=== PATIENT | female | born 1975 | race Caucasian/White ===

== ENCOUNTER 2019-09-01 11:40 | Inpatient (IN) | payer BC ==
[~2019-09-01] VITALS: Ht 167.6 cm; Wt 69.0 kg
[2019-09-01 13:26] LABS: Basophils # (auto) 0.1 uL; Basophils % (auto) 1.1 % (0.0-2.0); Eosinophils # (auto) 0.1 uL; Eosinophils % (auto) 1.4 % (0.0-7.0); Hematocrit 49.2 % (36.0-46.0); Lymphocytes # (auto) 1.8 uL; Lymphocytes % (auto) 19.5 % (10.0-50.0); Mean Corpuscular Hgb Conc. 34.6 g/dL (32.0-36.0); Mean Corpuscular Volume 98.3 fL (80.0-100.0); Monocytes # (auto) 0.7 uL; Monocytes % (auto) 7.2 % (0.0-12.0); Neutrophils # (auto) 6.5 uL; Neutrophils % (auto) 70.8 % (37.0-80.0); Nucleated Red Blood Cells % 0.2 %; Platelet Count (auto) 277 10^3/uL (140-450); Red Blood Cells 5.01 10^6/uL (4.0-5.20); Red Cell Distribution Width 12.9 % (11.8-14.3); White Blood Cell 9.2 10^3/uL (4.4-10.8)
[2019-09-01 13:41] LABS: Alanine Aminotransferase 18 U/L (13-56); Albumin 3.3 g/dL (3.4-5.0); Anion Gap 6 (5-15); Aspartate Aminotransferase 18 U/L (15-37); BUN/Creatinine Ratio 9.8; Blood Urea Nitrogen 8 mg/dL (7-18); Calcium 8.6 mg/dL (8.5-10.1); Carbon Dioxide 24 mmol/L (21-32); Chloride 110 mmol/L (98-107); GFR African American 97 mL/min; GFR Non-African American 80 mL/min; Glucose 94 mg/dL (74-106); Sodium 140 mmol/L (136-145)
[2019-09-01] MEDS ORDERED: methylPREDNISolone SOD SUCC 125 MG/2 ML VL IV ONE (13:45)
[2019-09-01 13:46] LABS: Alkaline Phosphatase 105 U/L (45-117); Bilirubin, Total 0.9 mg/dL (0.2-1.0); Total Protein 7.1 g/dL (6.4-8.2)
[2019-09-01] MEDS ORDERED: ALBUTEROL SULF 2.5 MG/0.5ML(0.5%) NEB SOLN NEB PRN (16:15)
[2019-09-01] MEDS ORDERED: ONDANSETRON HCL 4 MG/2 ML VIAL IV PRN (16:15)
[2019-09-01] MEDS ORDERED: NITROGLYCERIN 0.4 MG SL TAB SL PRN (16:15)
[2019-09-01] MEDS ORDERED: ACETAMINOPHEN 500 MG TAB PO PRN (16:15)
[2019-09-01] MEDS ORDERED: IPRATROPIUM BROM 0.5 MG/2.5ML INH SOL NEB PRN (16:15)
[2019-09-01] MEDS ORDERED: MORPHINE SULF INJ 2 MG/ML SYRINGE 1ML IV PRN (16:15)
[2019-09-01] MEDS ORDERED: IOHEXOL 300 MG/ML 100ML BOTTLE IJ ONE (16:26)
[2019-09-01] MEDS ORDERED: PANT1INJ3 PO (18:06)
[2019-09-01] MEDS ORDERED: METR250T PO (18:06)
[2019-09-01] MEDS ORDERED: DOXY100C2 PO (18:06)
[2019-09-01 18:07] LABS: INR 0.94 (0.9-1.15); Partial Thromboplastin Time 30.7 sec (23.64-32.05)
--- NOTE | 2019-09-01 19:13 | NUR ---
Opening Shift Note Assumed care of patient, awake and alert x4. No S/S of distress/SOB or pain. Call light is within reach, side rails up x2, bed is in lowest position. Instructed on POC and to call for assist PRN. All questions and concerns answered, will continue to monitor for changes Q1hr and PRN.
[2019-09-01] MEDS: ALBUTEROL SULF 2.5 MG/0.5ML(0.5%) NEB SOLN NEB SCH (19:36)
[2019-09-01] MEDS: IPRATROPIUM BROM 0.5 MG/2.5ML INH SOL NEB SCH (19:36)
--- NOTE | 2019-09-01 19:51 | NUR ---
EKG done technician plant and maintenance called, patient was having frequent PVCs. EKG completed, no complaints of pain. EKG read sinus tachycardia with PVCs similar to previous EKG taken. It is in the hard chart. Will continue to monitor.
[2019-09-01] MEDS: metroNIDAZOLE 500 MG TAB PO SCH (21:33)
[2019-09-01] MEDS: DOXYCYCLINE 100 MG TAB/CAP PO SCH (21:33)
[2019-09-01 22:00] VITALS: BP 115/65
[2019-09-01 23:09] VITALS: BP 115/65
[2019-09-02 05:00] VITALS: BP 122/76
[2019-09-02] MEDS: metroNIDAZOLE 500 MG TAB PO SCH ×2 (06:08→14:00)
[2019-09-02] MEDS: ALBUTEROL SULF 2.5 MG/0.5ML(0.5%) NEB SOLN NEB SCH ×3 (06:27→18:19)
[2019-09-02] MEDS: IPRATROPIUM BROM 0.5 MG/2.5ML INH SOL NEB SCH ×3 (06:27→18:18)
--- NOTE | 2019-09-02 07:42 | NUR ---
Opening patient awake, in bed, bed in lowest position, call light within reach. no distress noted at this time. Will f/u with morning assessment. patient is awaiting dr al, pulmonology consult; per the cxr and chest ct results. will continue to monitor this patient
[2019-09-02 08:49] VITALS: BP 136/86
[2019-09-02] MEDS: DOXYCYCLINE 100 MG TAB/CAP PO SCH (09:36)
[2019-09-02] MEDS ORDERED: PANTOPRAZOLE 40 MG TAB PO SCH (10:00)
[2019-09-02 12:08] VITALS: BP 141/84
--- NOTE | 2019-09-02 14:33 | NUR ---
s/p thoracentesis DR Figueroa completed the procedure at bedside, patient tolerated well. vital signs 154/94 blood pressure heart rate 103 oxygen saturations 92% patient is able to speak without excessive shortness of breath, states "i feel better" will contine to monitor this patient specimens have be sent to lab for testing
[2019-09-02 16:49] VITALS: BP 136/75
--- NOTE | 2019-09-02 17:07 | NUR ---
pharmacist karla rounding and discusses a treatment plan for patient for Hpylori diagnosis discussed with dr salas, and he agreed plan of treatment is start amoxicillin 1 g BID with PPI protonix BID for 7 days, then follow with clarithromycin 500 mg BID and metronidazole 500 mg BID and PPI BID for 7 days as well. Placed all orders, and coordinating dates. Will endorse to noc nurse to further endorse.
--- NOTE | 2019-09-02 17:59 | NUR ---
PAGING MATURITY CHECKER RECORDER GRAVITY PROSPECTING PER THE PATIENTS SHORTNESS OF BREATH, SATURATIONS FROM 92-94% O 2 ON ROOM AIR, BLOOD PRESSURE 131/88 SPOKE WITH JERMAINE ON RECORDER GRAVITY PROSPECTING'S EXCHANGE
[2019-09-02] MEDS: MORPHINE SULF INJ 2 MG/ML SYRINGE 1ML IV PRN (18:00)
[2019-09-02] MEDS ORDERED: AMOXICILLIN TRIHYDRATE 250 MG CAP PO SCH (18:00)
[2019-09-02] MEDS: PANTOPRAZOLE 40 MG TAB PO SCH (18:00)
--- NOTE | 2019-09-02 18:41 | NUR ---
COMMUNICATION ORDERS PER MD ASTUDILLO IF PATIENT IN DISTRESS ORDER STAT CXR AND ABG
[2019-09-02] MEDS ORDERED: FUROSEMIDE 20 MG/2 ML VIAL IV ONE (18:45)
--- NOTE | 2019-09-02 18:46 | NUR ---
NEW ORDERS FROM MD ASTUDILLO LASIX 20 MG 1 TIME DOSAGE, HE REVIEWED CHEST XRAY AND SAYS TO CANCEL ABG
--- NOTE | 2019-09-02 18:59 | NUR ---
PT PLACED ON 3L NC DUE TO PT INCREASED WOB. POX 98% RR 24
--- NOTE | 2019-09-02 19:20 | NUR ---
Opening Shift Note Pt is resting in bed with resp rate even and unlabored. Pt denies any SOB at this time. POC discussed with pt and pt verbalizes understanding. Bed is low, wheels are locked, and call light is with in reach.
--- NOTE | 2019-09-02 20:52 | NUR ---
PT REQUESTING O2 MASK DUE TO NASAL CONGESTION. PT PLACED ON 6L SIMPLE MASK POX 99%
[2019-09-02 21:14] VITALS: BP 118/85
--- NOTE | 2019-09-02 21:30 | NUR ---
PER PHARMACY CLARITHROMYCIN AND FLAGYL TO BE STARTED ON 09/09/19 PER H.PYLORI PROTOCOL.
[2019-09-03 04:33] VITALS: BP 125/84
[2019-09-03] MEDS: ALBUTEROL SULF 2.5 MG/0.5ML(0.5%) NEB SOLN NEB SCH ×4 (05:51→18:54)
[2019-09-03] MEDS: IPRATROPIUM BROM 0.5 MG/2.5ML INH SOL NEB SCH ×4 (05:51→18:54)
[2019-09-03] MEDS: PANTOPRAZOLE 40 MG TAB PO SCH ×2 (06:01→18:04)
[2019-09-03 07:24] LABS: Basophils # (auto) 0.1 uL; Basophils % (auto) 0.9 % (0.0-2.0); Eosinophils # (auto) 0.1 uL; Eosinophils % (auto) 1.3 % (0.0-7.0); Hemoglobin 16.1 g/dL (12.2-16.2); Lymphocytes # (auto) 1.7 uL; Lymphocytes % (auto) 18.8 % (10.0-50.0); Mean Corpuscular Hemoglobin 33.8 pg (28.0-32.0); Mean Corpuscular Hgb Conc. 34.2 g/dL (32.0-36.0); Mean Corpuscular Volume 98.7 fL (80.0-100.0); Monocytes # (auto) 0.7 uL; Monocytes % (auto) 8.3 % (0.0-12.0); Neutrophils # (auto) 6.3 uL; Neutrophils % (auto) 70.7 % (37.0-80.0); Nucleated Red Blood Cells % 0.1 %; Platelet Count (auto) 247 10^3/uL (140-450); Red Blood Cells 4.77 10^6/uL (4.0-5.20); Red Cell Distribution Width 12.7 % (11.8-14.3)
[2019-09-03 07:30] VITALS: BP 129/79
[2019-09-03 07:41] LABS: Anion Gap 6 (5-15); BUN/Creatinine Ratio 10.6; Blood Urea Nitrogen 10 mg/dL (7-18); Calcium 8.6 mg/dL (8.5-10.1); Carbon Dioxide 28 mmol/L (21-32); Chloride 109 mmol/L (98-107); GFR African American 83 mL/min; GFR Non-African American 68 mL/min; Glucose 117 mg/dL (74-106); Magnesium 2.1 mg/dL (1.6-2.6); Potassium 4.2 mmol/L (3.5-5.1); Sodium 143 mmol/L (136-145)
--- NOTE | 2019-09-03 07:50 | NUR ---
Opening Shift Note Assumed care of patient, awake and alert. No S/S of distress/SOB or pain. Bed in lowest position, breaks locked side rails up x2, call light with in reach. Instructed on POC and to call for assist PRN, will continue to monitor for changes Q1hr and PRN.
[2019-09-03 09:00] VITALS: BP 129/79
--- NOTE | 2019-09-03 09:10 | NUR ---
Doctor Luciano rounding.
[2019-09-03] MEDS: AMOXICILLIN TRIHYDRATE 250 MG CAP PO SCH ×2 (09:26→22:15)
--- NOTE | 2019-09-03 09:35 | NUR ---
Doctor Gil dotson. Addendum: 09/03/19 at 1825 by WARREN SANTIAGO RN RN This note was intended for 0950.
[2019-09-03] MEDS: MORPHINE SULF INJ 2 MG/ML SYRINGE 1ML IV PRN ×2 (10:05→16:18)
[2019-09-03 13:00] VITALS: BP 117/77
--- NOTE | 2019-09-03 14:00 | NUR ---
Educated patient on the use and importance of IS. Patient was able to go to 500ml x3.
--- NOTE | 2019-09-03 21:00 | NUR ---
RECEIVE IN BED IS WATCHING TV NO SOB OR DISTRESS
[2019-09-03 22:00] VITALS: BP 119/82
[2019-09-03] MEDS: HYDROcodone-ACET 5/325MG TAB PO PRN (22:20)
[2019-09-04] VITALS (7 sets, daily range): BP systolic 116–133; BP diastolic 61–91
[2019-09-04] MEDS: PANTOPRAZOLE 40 MG TAB PO SCH ×2 (06:00→17:51)
[2019-09-04] MEDS: IPRATROPIUM BROM 0.5 MG/2.5ML INH SOL NEB SCH ×3 (06:17→18:43)
[2019-09-04] MEDS: ALBUTEROL SULF 2.5 MG/0.5ML(0.5%) NEB SOLN NEB SCH ×3 (06:17→18:43)
--- NOTE | 2019-09-04 07:40 | NUR ---
Opening Shift Note Assumed care of patient, awake and alert. No S/S of distress/SOB or pain. Bed in lowest position, breaks locked, side rails up x2, call light with in reach. Instructed on POC and to call for assist PRN, will continue to monitor for changes Q1hr and PRN.
[2019-09-04] MEDS: AMOXICILLIN TRIHYDRATE 250 MG CAP PO SCH ×2 (09:24→22:14)
[2019-09-04] MEDS: MORPHINE SULF INJ 2 MG/ML SYRINGE 1ML IV PRN ×4 (09:24→22:15)
--- NOTE | 2019-09-04 11:47 | NUR ---
Nutrition Assessment Notes please see attached link for complete assessment Est. Needs BW [id number] kcal (23-25 kcal/kgBW), 69-82 gms pro (1.0-1.2 gms/kgBW). Will continue to monitor pertinent labs and reassess nutrient need prn Addendum: 09/04/19 at [address] Amended: Links added.
--- NOTE | 2019-09-04 21:00 | NUR ---
RECEIVE IN BED DENIES PAIN AT THIS TIME ENCOURAGE TO USE INCENTIVE SPIROMETER
--- NOTE | 2019-09-04 21:00 | NUR ---
RECEIVE IN BED USES MOTORIZE CHAIR TO GO DOWNSTAIRS TO SMOKE IS AWARE HE SHOULD INFORM NURSE BEFORE LEAVING REMAINS ON TELEMETRY WITH FREQUENT PVC Addendum: 09/04/19 at 0060 by ONEIL ROBBINS RN RN NOTE INTENDED FOR ANOTHER PATIENT
[2019-09-05 04:45] VITALS: BP 132/69
[2019-09-05] MEDS: PANTOPRAZOLE 40 MG TAB PO SCH ×2 (06:05→17:58)
[2019-09-05] MEDS: MORPHINE SULF INJ 2 MG/ML SYRINGE 1ML IV PRN (06:06)
[2019-09-05] MEDS: IPRATROPIUM BROM 0.5 MG/2.5ML INH SOL NEB SCH ×3 (06:25→19:07)
[2019-09-05] MEDS: ALBUTEROL SULF 2.5 MG/0.5ML(0.5%) NEB SOLN NEB SCH ×3 (06:25→19:07)
--- NOTE | 2019-09-05 08:00 | NUR ---
Opening Shift Note Assumed care of patient, awake, alert and oriented X4. No S/S of distress/SOB, complains of pain to right upper abdomen, 3/10, Alves Reyes scale, verbalized tolerable. O2 @ 2 LPM via nasal cannula with sats @ 95%. IV to left hand, 22 gauge, patent and saline locked. Instructed on POC and to call for assist PRN, verbalized understanding. Bed locked, in lowest position, call light within reach, will continue to monitor for changes Q1hr and PRN.
[2019-09-05 09:00] VITALS: BP 111/71
--- NOTE | 2019-09-05 09:30 | NUR ---
ROUNDS Dr Maikel Luciano at bedside for rounds, new orders received and followed through. Patient updated on plan of care, verbalized understanding.
[2019-09-05] MEDS: AMOXICILLIN TRIHYDRATE 250 MG CAP PO SCH ×2 (10:17→21:41)
--- NOTE | 2019-09-05 10:25 | NUR ---
Respiratory note: PT SPO2 AT REST MAINTAINS ABOVE 94%. TRIED TO AMBULATE PT AND SPO2 REMAINED 92% AND ABOVE. WILL INFORM KEAOTN GARCIA.
[2019-09-05] MEDS: HYDROcodone-ACET 5/325MG TAB PO PRN ×2 (11:58→18:42)
[2019-09-05 16:46] VITALS: BP 130/88
--- NOTE | 2019-09-05 16:50 | NUR ---
RESPIRATORY Dr Luis Miguel Rios at bedside for Pulmonology follow up,new orders received and followed through. Patient updated on plan of care, verbalized understanding.
--- NOTE | 2019-09-05 18:08 | NUR ---
ABNORMAL CHEST XRAY RESULTS Abnormal chest X-ray results called to Dr Luis Miguel Rios, new orders for repeat ultrasound guided thoracentesis received and followed through. Patient updated on plan of care, verbalized understanding.
--- NOTE | 2019-09-05 19:17 | NUR ---
Care endorsed to KEATON Fletcher, night nurse.
--- NOTE | 2019-09-05 19:25 | NUR ---
RECEIVED PATIENT, AWAKE, ALERT, ORIENTED X4. NO S/S OF RESPIRATORY DISTRESS. ORIENTED ON PLAN OF CARE. BED IS LOCKED AND IN LOWEST POSITION, SIDE RAILS UP X2, CALL LIGHT WITHIN REACH. WILL CONTINUE TO MONITOR
[2019-09-05 22:59] VITALS: BP 128/78
[2019-09-06] MEDS: HYDROcodone-ACET 5/325MG TAB PO PRN ×3 (05:10→19:24)
[2019-09-06 05:30] VITALS: BP 113/75
[2019-09-06] MEDS: PANTOPRAZOLE 40 MG TAB PO SCH ×2 (05:47→17:50)
[2019-09-06] MEDS: ALBUTEROL SULF 2.5 MG/0.5ML(0.5%) NEB SOLN NEB SCH ×3 (06:22→18:43)
[2019-09-06] MEDS: IPRATROPIUM BROM 0.5 MG/2.5ML INH SOL NEB SCH ×3 (06:22→18:43)
--- NOTE | 2019-09-06 07:12 | NUR ---
CARE ENDORSED TO AM SHIFT RN
--- NOTE | 2019-09-06 07:37 | NUR ---
CARE ENDORSED TO AM SHIFT RN
--- NOTE | 2019-09-06 08:33 | NUR ---
Per Dr Cordero, Dr Khan will do the thoracentesis. labs ordered per Dr Luciano. US completed this morning. Patient asymptomatic, made aware of the plan.
[2019-09-06 09:15] VITALS: BP 120/80
[2019-09-06 09:16] LABS: INR 0.93 (0.9-1.15); Partial Thromboplastin Time 30.4 sec (23.64-32.05)
[2019-09-06] MEDS: AMOXICILLIN TRIHYDRATE 250 MG CAP PO SCH ×2 (10:03→21:35)
[2019-09-06 13:06] VITALS: BP 126/75
--- NOTE | 2019-09-06 14:18 | NUR ---
DR LOPEZ INFORMED OVER THE PHONE ON PATHOLOGY REPORT THAT WAS CALLED ON TO DR GOMEZ. PER DR LOPEZ, " WILL TAKE A LOOK ON THE REPORT AND WILL GET ONCOLOGY ON BOARD NECESSARY.
[2019-09-06 17:17] VITALS: BP 115/78
[2019-09-06 22:00] VITALS: BP 126/89
[2019-09-07] MEDS: HYDROcodone-ACET 5/325MG TAB PO PRN ×3 (05:30→17:26)
[2019-09-07] MEDS: PANTOPRAZOLE 40 MG TAB PO SCH ×2 (05:30→17:20)
[2019-09-07 06:07] VITALS: BP 135/68
[2019-09-07] MEDS: IPRATROPIUM BROM 0.5 MG/2.5ML INH SOL NEB SCH ×3 (07:10→20:15)
[2019-09-07] MEDS: ALBUTEROL SULF 2.5 MG/0.5ML(0.5%) NEB SOLN NEB SCH ×3 (07:10→20:15)
--- NOTE | 2019-09-07 07:18 | NUR ---
CARE ENDORSED TO AM SHIFT RN
[2019-09-07 08:47] VITALS: BP 132/66
[2019-09-07] MEDS: AMOXICILLIN TRIHYDRATE 250 MG CAP PO SCH (09:46)
--- NOTE | 2019-09-07 11:27 | NUR ---
ambulating outside room with . tolerating well, gait steady.
--- NOTE | 2019-09-07 11:48 | NUR ---
PER DR GOMEZ, FIRST THORACENTESIS SHOWED POORLY DIFFERENTIATED ADENOCARCINOMA. PLAN ON DISCHARGING TOMORROW IF NO OTHER UPCOMING PROCEDURE FROM PULMONARY. WILL UPDATE PULMO DURING ROUNDS TODAY.
[2019-09-07 13:11] VITALS: BP 136/67
--- NOTE | 2019-09-07 14:11 | NUR ---
Nutrition Follow-up Notes Wt.: 69.3 kg as of yesterday. Pt's asleep, no immediate family member at bedside during rounds this morning. Pt's s/p Thoracentesis yesterday, no signs of distress noted earlier, currently on Regular diet with adequate PO intake aeb 80% ave. consumed meals (x6) in last 2.5 days. Noted pt's for active Radiologist consult. Est. Needs BW [id number] kcal (23-25 kcal/kgBW), 69-82 gms pro (1.0-1.2 gms/kgBW). Will continue to monitor pertinent labs and reassess nutrient need prn Labs: No new labs since Gluc 117 H, Cl 109 H; Alb 3.3 L Skin: Ta scale 20, low risk, skin intact per family development extension specialist. GI: Pt had 1 BM yesterday per family development extension specialist. PES: Altered nutrition related lab values r/t current/chronic medical condition aeb hyperglycemia, mild hypoalb Will continue to monitor PO intake, skin status, pertinent labs and weight trend. F/u in 3 to 5 days. Rec.: 1.) Continue close supervision with meals. 2.) Consider to continue monitoring pertinent labs prn; If Albumin continues trending down, consider Prostat 1 pkt BID. 3.) Refer pt to RD for further nutrition education and weight monitoring upon discharge. 4.) Continue current plan of care.
--- NOTE | 2019-09-07 15:12 | NUR ---
[address] MORRIS, INFORMED PATIENT THERE'S NOTHING ELSE FOR HIM RIGHT NOW, UNLESS THERE WILL BE A NEED TO PLACE PLEURX CATH IF CONTINUE TO KEEP ACCUMULATING FLUIDS IN HER PLEURA, PLACEMENT CAN BE DONE OUTPATIENT PER MD. INFORMED PATIENT AND HER NEXT STEP IS TO GET ONCOLOGY CONSULT. [address] GOMEZ OVER THE PHONE, UPDATED ON DR LOPEZ VISIT. ONCO CONSULT PLACED PER DR GOMEZ.PATIENT AND HER MADE AWARE. 1505 NOTED PATIENT AMBULATING OUTSIDE ROOM, ACCOMPANIED BY HER . OFFERED NON SKID SOCKS FOR SAFETY BUT PATIENT REFUSED.
--- NOTE | 2019-09-07 16:10 | NUR ---
assessment Patient is a 44 year old female who is alert and oriented. Patients cognitive abilities are intact. Prior to admission patient lived home with her Varinder and functioned independently. Patient informed me she is able to care for her own ADLs. Per patient she will return home to her prior living arrangements post discharge and Varinder will transport her home. Patient has been told possible lung cancer. Patients spirits are good. Patient is aware of her diagnosis and is feeling optimistic. I provided emotion support and offered resources. Patient is refusing resources at this time for therapist. Patient informed me she has quit smoking and so did her Varinder. Patient has good family support. Patient is aware of her insurance contact number for theripist or smoking cessation. I informed patient she has a right to speak to a social problems specialist regarding all care. I informed patient she has a right to participate in any and all discharge planning. Patient does not have a POA and advanced directive. I have offered patient information on POA and advanced directives. I informed the patient the advantages and benefits of having an Advanced Directive. Patient verbalized understanding and agreed to discharge plan. Addendum: 09/07/19 at 1619 by Stacie MCKINLEY Amended: Links added.
[2019-09-07 17:12] VITALS: BP 127/92
[2019-09-07 22:00] VITALS: BP 120/72
[2019-09-08] MEDS: HYDROcodone-ACET 5/325MG TAB PO PRN ×2 (00:33→08:24)
[2019-09-08 02:44] VITALS: BP 120/72
[2019-09-08 05:00] VITALS: BP 110/77
[2019-09-08] MEDS: PANTOPRAZOLE 40 MG TAB PO SCH (05:34)
[2019-09-08] MEDS: ALBUTEROL SULF 2.5 MG/0.5ML(0.5%) NEB SOLN NEB SCH (06:52)
[2019-09-08] MEDS: IPRATROPIUM BROM 0.5 MG/2.5ML INH SOL NEB SCH (06:52)
--- NOTE | 2019-09-08 07:16 | NUR ---
CARE ENDORSED TO AM SHIFT RN
[2019-09-08 09:00] VITALS: BP 110/65
[2019-09-09] MEDS ORDERED: metroNIDAZOLE 500 MG TAB PO SCH (18:00)
[2019-09-09] MEDS ORDERED: CLARITHROMYCIN 500 MG TAB PO SCH (18:00)
== END 2019-09-08 11:50 | disposition home or self-care (01) | DRG 181 ==
LOC: ER 11:40 → TELE 11:41 → TELE-CENTR 18:04 → CENTRAL 09-04 11:28
PROVIDERS: ADMIT Nurse Practitioner Acute Care; ATTEND Family Medicine
PROC: 0W993ZZ Drainage of Right Pleural Cavity, Percutaneous Approach (ICD-10-PCS; 2019-09-02)
PROC: 0W9930Z Drainage of Right Pleural Cavity with Drainage Device, Percutaneous Approach (ICD-10-PCS; principal; 2019-09-06)
DX: C34.11 Malignant neoplasm of upper lobe, right bronchus or lung (principal); J91.0 Malignant pleural effusion; E44.1 Mild protein-calorie malnutrition; F17.210 Nicotine dependence, cigarettes, uncomplicated; J43.2 Centrilobular emphysema; R09.02 Hypoxemia; Z80.1 Family history of malignant neoplasm of trachea, bronchus and lung; Z82.49 Family history of ischemic heart disease and other diseases of the circulatory system; Z82.5 Family history of asthma and other chronic lower respiratory diseases; Z83.3 Family history of diabetes mellitus; Z90.710 Acquired absence of both cervix and uterus; Z98.891 History of uterine scar from previous surgery; Z71.6 Tobacco abuse counseling; Z79.899 Other long term (current) drug therapy
CPT/HCPCS: 36415; 36600; 71045; 71046; 71260; 76604; 76942; 80048; 80053; 82805; 83021; 83615; 83735; 83880; 83986; 84100; 84484; 85025; 85610; 85660; 85730; 86703; 87205; 89051; 93005; 94640; 94761; 99291; G0378